=== PATIENT | male | born 1945 | race Caucasian/White ===

== ENCOUNTER 2017-10-02 10:14 | Day surgery (SDC) | payer OTHER ==
[2017-10-02] MEDS ORDERED: PROPOFOL 20 ML (11:30)
== END 2017-10-02 14:00 | disposition home or self-care (01) ==
LOC: GIL 10:14
DX: Z12.11 Encounter for screening for malignant neoplasm of colon (principal); K64.8 Other hemorrhoids; E11.9 Type 2 diabetes mellitus without complications; I10 Essential (primary) hypertension; N40.0 Benign prostatic hyperplasia without lower urinary tract symptoms
CPT/HCPCS: 45378; 82962